=== PATIENT | female | born 1980 | race Caucasian/White ===

== ENCOUNTER 2024-02-21 17:17 | Emergency (ER) | payer OTHER ==
[~2024-02-21] VITALS: Ht 165.1 cm; Wt 72.6 kg
[2024-02-21] MEDS ORDERED: Vyvanse30 MG PO (17:33)
[2024-02-21] MEDS ORDERED: FLUOXETINE HCL20 M1 PO (17:34)
== END 2024-02-21 18:45 | disposition home or self-care (01) ==
LOC: ER 17:17
DX: S93.401A Sprain of unspecified ligament of right ankle, initial encounter (principal); W10.9XXA Fall (on) (from) unspecified stairs and steps, initial encounter; Z88.0 Allergy status to penicillin; Z79.899 Other long term (current) drug therapy
CPT/HCPCS: 73610; 99283-25